=== PATIENT | female | born 1985 | race Caucasian/White ===

== ENCOUNTER → 2019-01-01 | Outpatient (CLI) | payer OTHER ==
[~2019-01-01] MED LIST: DESMOPRESSIN A0.2 M2; DUAC 1.2-5% GEL45 GM; IBUPROFEN 600600 M1 PO; LORATIDINE 10 M10 M1; ZPAK PO
== END ==
LOC: RAD 09:05 → SPEECH 09:06 → RAD 10:00
DX: T17.220A Food in pharynx causing asphyxiation, initial encounter (principal); X58.XXXA Exposure to other specified factors, initial encounter; Y93.89 Activity, other specified; Y92.89 Other specified places as the place of occurrence of the external cause; Y99.8 Other external cause status

== ENCOUNTER → 2020-04-27 | Outpatient (CLI) | payer OTHER | LOC: BC 08:30 → RAD 10:04 → ULTRA 10:04 | PROVIDERS: ATTEND Nurse Practitioner | DX: N63.20 Unspecified lump in the left breast, unspecified quadrant (principal); N64.89 Other specified disorders of breast ==